=== PATIENT | female | born 1970 | race Caucasian/White ===

== ENCOUNTER 2017-01-13 19:27 | Inpatient (IN) | payer MEDICAID ==
[2017-01-13] MEDS ORDERED: NS 1,000 ML IV ONE ×3 (19:39→21:14)
[2017-01-13] MEDS ORDERED: FAMOTIDINE 20 MG in NS 100 ML IV ONE (19:39)
[2017-01-13] MEDS ORDERED: PROMETHAZINE HCL 25 MG/ML INJ IVP ONE (19:39)
[2017-01-13] MEDS ORDERED: HYDROmorphONE/DILAUDID 1 MG/ML INJ IVP ONE ×2 (19:39→20:24)
--- NOTE | 2017-01-13 19:44 | EDPHY ---
H & P Time Seen by Provider: 01/13/17 19:35 HPI/ROS: HPI Vomiting and diarrhea. 46-year-old female by private vehicle. She reports she developed nausea followed by vomiting and diarrhea yesterday evening. She reports this has been persistent. She reports at least 18-20 episodes of nonbilious, nonbloody vomiting as well as dry heaving with watery diarrhea since that time. No bloody or melenic stool. She describes having crampy abdominal discomfort. She denies any foreign travel. No change in diet. No ill contacts. No new medications. She also noticed some blood in her urine this evening prior to arrival. She is not menstruating currently. She is postmenopausal. ROS: Constitutional: No fever, no chills. No weakness. Eyes: No discharge. No changes in vision. ENT: No sore throat. No nasal congestion or rhinorrhea. Respiratory: No cough. No shortness of breath. Cardiac: No chest pain, no palpitations. Gastrointestinal: As above. Genitourinary: As above. No dysuria or increased frequency with urination. Musculoskeletal: No back pain. No neck pain. No myalgias or arthralgias. Skin: No rashes. Neurological: No headache. No focal weakness or altered sensation. Past medical history: Migraine headaches, chronic pain secondary to lumbar and cervical degeneration, anxiety. She takes Ativan p.r.n.. She takes morphine for her chronic pain. She took morphine earlier today but with no relief in her symptoms. Social history: Nonsmoker. Here by herself. Occasional alcohol use. Physical Exam: General Appearance: Alert, anxious. This patient is responding to questions appropriately and in full sentences. She generally appears well nourished. Eyes: Pupils equal and round no pallor or injection. No lid edema, erythema or injection. ENT, Mouth: Mucous membranes are dry. Respiratory: There are no retractions, lungs are clear to auscultation with good air movement bilaterally. Cardiovascular: Regular rate and rhythm. Tachycardia. No murmur appreciated. Gastrointestinal: Abdomen is soft with mild and vague tenderness throughout, no masses, bowel sounds normal. No focal tenderness at McBurney's point. No Simpson sign. Neurological: Motor sensory function is grossly intact. Cranial nerves are normal. Gait is normal. Skin: Warm and dry, no rashes. Musculoskeletal: Neck is supple and nontender. No CVA tenderness on palpation bilaterally. Extremities are symmetrical. All joints range without pain or impingement. Psychiatric: No agitation. No depression. Database: EKG: Imaging: Procedures: Emergency department course: IV placed. She was placed on a monitor. Vital signs reviewed. She is tachycardic. She is afebrile on triage vitals. She was started on IV normal saline with 2 L to be given over the next 1-2 hours. She was initially given 20 mg of IV Pepcid, 4 mg of IV Zofran, 6.25 mg of IV Phenergan and 0.5 mg of IV hydromorphone. 8:25 p.m., patient re-evaluated. Her nausea is much better. She still complains of some crampy abdominal discomfort and had another episode of diarrhea. She was given 0.5 mg of IV hydromorphone. Heart rate is now 120. Blood work shows acidosis. Likely secondary to loss of bicarbonate from diarrhea. Leukocytosis likely associated with vomiting. 9:20 p.m., patient re-evaluated. Resting comfortably at this time. She states that she feels much better. She has had 2 L of IV normal saline. She has urinated. We are waiting on results of urinalysis. Heart rate has come down to 110. Repeat abdominal exam she is soft, nontender nondistended. She was started on a 3rd L of IV fluids, lactated Ringer's. We will give her some oral fluids as well. Urinalysis reviewed. Are RBCs and a few WBCs with hyaline casts. May represent infectious etiology. Urine sent for culture. She will be started on antibiotics in the emergency department. These will be continued verses discontinued based on culture results. 10:35 p.m., patient re-evaluated. She is failed p.o. challenge. Vomited her juice. She was given another 4 mg of IV Zofran. Sepsis protocol initiated. She was given 1 g of IV ceftriaxone in the emergency department for possible urinary tract infection/pyelonephritis. Plan will be to admit her to the hospitalist service for antiemetics and continued IV fluid hydration. A repeat basic metabolic panel was sent to evaluate her electrolyte status and acidosis. Blood cultures and stool studies have been ordered. She endorses plan for admission. 10:40 p.m., spoke with on-call hospitalist Dr. Urszula Mullen. Case discussed in detail with her. She accepts the patient for admission. 10:45 p.m., patient 2nd metabolic panel shows a bicarb from [address] Mullen is aware of pending lactate and sepsis protocol studies. Urinalysis is not clearly indicative as source of infection. Leukocytosis an acidosis at this time more likely secondary vomiting and bicarbonate loss from diarrhea respectively. Stool cultures and studies have also been ordered. Patient will be continued on aggressive IV fluids. 11:00 p.m., patient comfortable at this time. Repeat abdominal exam is soft, nontender nondistended. She was transferred to [facility] in stable and improved condition. Differential Diagnosis: The differential diagnosis on this patient includes but is not limited to food borne illness, viral gastroenteritis, narcotic withdrawal, benzodiazepine withdrawal. Appendicitis, other surgical etiology unlikely. This represents a partial list of diagnoses considered. These considerations are based on history , physical exam, past history, reassessment and diagnostic testing. Smoking Status: Never smoked Constitutional: Initial Vital Signs Temperature (C) 36.3 C 01/13/17 19:35 Heart Rate 142 H 01/13/17 19:35 Respiratory Rate 20 01/13/17 19:35 Blood Pressure 130/105 H 01/13/17 19:35 O2 Sat (%) 98 01/13/17 19:35 O2 Delivery Mode Room Air Allergies/Adverse Reactions: erythromycin base [From E-Mycin] Allergy (Intermediate, Verified 01/13/17 19:48) Abdominal Pain/ VOMITTING Home Medications: Medication Instructions Recorded Albuterol [Proventil Inhaler HFA 1 - 2 puffs IH Q4H PRN 01/14/17 (*)] Cyclobenzaprine [Flexeril 10 MG 10 mg PO TID PRN 01/14/17 (*)] LORazepam [Ativan (*)] 1 mg PO TID PRN 01/14/17 Naproxen 375 mg PO DAILY 01/14/17 QUEtiapine FUMARATE [Seroquel 100 100 mg PO DAILY 01/14/17 mg (*)] QUEtiapine FUMARATE [Seroquel 100 200 mg PO HS 01/14/17 mg (*)] morphINE SR [Ms Contin/Oramorph 15 15 mg PO Q8H PRN 01/14/17 mg (*)] oxyCODONE/APAP 5/325 [Percocet 1 tab PO TID PRN 01/14/17 5/325 (*)] Medical Decision Making - Data Points Laboratory Results: Laboratory Results 01/13/17 19:45 01/13/17 22:20 Microbiology Results: MICROBIOLOGY 01/13/17 21:10 Unspecified Urine Culture - Preliminary Medications Given: Enoxaparin Sodium (Lovenox) 40 mg SC DAILY AMY Stop: 07/13/17 08:59 Last Admin: 01/14/17 08:18 Dose: 40 mg Hydromorphone HCl (Dilaudid) 0.4 mg IVP Q4HRS PRN PRN Reason: Pain, Severe Unable to Take PO Stop: 01/24/17 01:18 Last Admin: 01/15/17 02:10 Dose: 0.4 mg Ceftriaxone Sodium/Dextrose (Rocephin 1 Gm (Premix)) 50 mls @ 100 mls/hr IV DAILY AMY PRN Reason: Protocol Stop: 02/13/17 08:59 Last Admin: 01/14/17 08:18 Dose: 50 mls Sodium Chloride (Ns) 1,000 mls @ 150 mls/hr IV CONT AMY Stop: 07/13/17 01:29 Last Admin: 01/14/17 15:18 Dose: 1,000 mls Morphine Sulfate (Ms Contin/Oramorph) 15 mg PO Q8H PRN PRN Reason: pain Stop: 01/24/17 10:17 Last Admin: 01/15/17 06:32 Dose: 15 mg Ondansetron HCl (Zofran) 4 mg IVP Q4HRS PRN PRN Reason: Nausea/Vomiting, Can't Take PO Stop: 07/13/17 00:51 Last Admin: 01/14/17 13:05 Dose: 4 mg Ondansetron HCl (Zofran Odt) 4 mg PO Q4HRS PRN PRN Reason: Nausea/Vomiting, Use 1st Stop: 07/13/17 00:51 Last Admin: 01/14/17 15:17 Dose: 4 mg Quetiapine Fumarate (Seroquel) 200 mg PO HS AMY Stop: 07/13/17 20:59 Last Admin: 01/14/17 21:09 Dose: 200 mg Discontinued Medications Acetaminophen (Tylenol) 1,000 mg PO ONCE ONE Stop: 01/13/17 23:09 Last Admin: 01/13/17 23:19 Dose: 1,000 mg Famotidine (Pepcid) 20 mg IVP EDNOW ONE Stop: 01/13/17 19:57 Last Admin: 01/13/17 20:07 Dose: Not Given Hydromorphone HCl (Dilaudid) 0.5 mg IVP EDNOW ONE Stop: 01/13/17 19:40 Last Admin: 01/13/17 19:59 Dose: 0.5 mg Hydromorphone HCl (Dilaudid) 0.5 mg IVP EDNOW ONE Stop: 01/13/17 20:25 Last Admin: 01/13/17 20:31 Dose: 0.5 mg Hydromorphone HCl (Dilaudid) 0.5 mg IVP EDNOW ONE Stop: 01/13/17 23:46 Last Admin: 01/14/17 00:45 Dose: Not Given Sodium Chloride (Ns) 1,000 mls @ 0 mls/hr IV EDNOW ONE; Wide Open PRN Reason: Protocol Stop: 01/13/17 19:40 Last Admin: 01/13/17 20:01 Dose: 1,000 mls Sodium Chloride (Ns) 1,000 mls @ 0 mls/hr IV EDNOW ONE; Wide Open PRN Reason: Protocol Stop: 01/13/17 19:40 Last Admin: 01/13/17 20:29 Dose: 1,000 mls Famotidine 20 mg/ Sodium (Chloride) 102 mls @ 408 mls/hr IV EDNOW ONE Stop: 01/13/17 19:53 Last Admin: 01/13/17 19:58 Dose: Not Given Sodium Chloride (Ns) 1,000 mls @ 0 mls/hr IV EDNOW ONE; Wide Open PRN Reason: Protocol Stop: 01/13/17 21:15 Last Admin: 01/14/17 00:45 Dose: Not Given Lactated Ringer's (Lr) 1,000 mls @ 500 mls/hr IV EDNOW ONE Stop: 01/13/17 23:20 Last Admin: 01/13/17 21:25 Dose: 1,000 mls Ceftriaxone Sodium/Dextrose (Rocephin 1 Gm (Premix)) 50 mls @ 100 mls/hr IV EDNOW ONE PRN Reason: Protocol Stop: 01/13/17 22:03 Last Admin: 01/13/17 21:44 Dose: 50 mls Morphine Sulfate (Ms Contin/Oramorph) 15 mg PO BID AMY Stop: 01/24/17 01:29 Last Admin: 01/14/17 08:18 Dose: 15 mg Ondansetron HCl (Zofran) 4 mg IVP EDNOW ONE Stop: 01/13/17 22:27 Last Admin: 01/13/17 22:36 Dose: 4 mg Pneumococcal Polyvalent Vaccine (Pneumovax 23) 0.5 ml IM .ONCE ONE Stop: 01/14/17 08:14 Last Admin: 01/14/17 08:26 Dose: 0.5 ml Promethazine HCl (Phenergan) 6.25 mg IVP EDNOW ONE Stop: 01/13/17 19:40 Last Admin: 01/13/17 20:00 Dose: 6.25 mg Quetiapine Fumarate (Seroquel) 200 mg PO HS AMY Stop: 07/13/17 01:17 Last Admin: 01/14/17 01:41 Dose: 200 mg Departure - Departure Disposition: [facility] Acute Clinical Impression: Vomiting and diarrhea, Dehydration, Tachycardia, Acidosis, Sepsis, Leukocytosis
[2017-01-13 19:49] LABS: % IMMATURE GRANULYOCYTES 0.5 % (0.0-1.1); ABSOLUTE IMMATURE GRANULOCYTES 0.14 10^3/uL (0.00-0.10); ADD DIFF? NO; ADD MORPH? NO; ADD SCAN? NO; ATYPICAL LYMPHOCYTE FLAG 0 (0-99); FRAGMENT RBC FLAG 20 (0-99); HEMATOCRIT 43.6 % (38.0-47.0); HEMOGLOBIN 14.8 g/dL (12.6-16.3); LEFT SHIFT FLG 0 (0-99); LIPEMIA HEMOLYSIS FLAG 90 (0-99); MEAN CELL HEMOGLOBIN 26.2 pg (27.9-34.1); MEAN CELL HEMOGLOBIN CONCENTR. 33.9 g/dL (32.4-36.7); MEAN CELL VOLUME 77.3 fL (81.5-99.8); MEAN PLATELET VOLUME 10.4 fL (8.7-11.7); PLATELET CLUMPS FLAG 0 (0-99); PLATELET COUNT 495 10^3/uL (150-400); RED BLOOD CELL COUNT 5.64 10^6/uL (4.18-5.33); RED CELL DISTRIBUTION WIDTH 15.4 % (11.5-15.2)
[2017-01-13] MEDS ORDERED: FAMOTIDINE 20 MG/2 ML SDV IVP ONE (19:56)
[2017-01-13 20:06] LABS: ALANINE AMINOTRANSFERASE 25 IU/L (9-52); ALBUMIN 4.4 g/dL (3.5-5.0); ALKALINE PHOSPHATASE 104 IU/L (38-126); ANION GAP 19 mEq/L (8-16); ASPARTATE AMINOTRANSFERASE 18 IU/L (14-46); BILIRUBIN-CONJUGATED 0.6 mg/dL (0.0-0.5); BILIRUBIN-UNCONJUGATED 0.4 mg/dL (0.0-1.1); CALCIUM 9.6 mg/dL (8.5-10.4); CARBON DIOXIDE 14 mEq/l (22-31); CHLORIDE 103 mEq/L (97-110); CREATININE 0.8 mg/dL (0.6-1.0); GLOMERULAR FILTRATION RATE > 60; GLUCOSE 140 mg/dL (70-100); POTASSIUM 4.2 mEq/L (3.5-5.2); SODIUM 136 mEq/L (134-144); TOTAL PROTEIN 7.8 g/dL (6.3-8.2)
[2017-01-13 21:14] LABS: COLOR YELLOW; LEUKOCYTE ESTERASE,URINE NEGATIVE (NEGATIVE); NITRITE,URINE NEGATIVE (NEGATIVE)
[2017-01-13] MEDS ORDERED: LR 1,000 ML IV ONE (21:21)
[2017-01-13 21:22] LABS: WBC,URINE OCCASIONAL /hpf (0-3)
[2017-01-13 21:23] LABS: BACTERIA 2+ /hpf (NONE SEEN); MUCUS 2+ /lpf (NONE-1+)
[2017-01-13] MEDS ORDERED: ONDANSETRON 4 MG/2 ML VIAL IVP ONE (22:26)
[2017-01-13 22:38] LABS: ANION GAP 14 mEq/L (8-16); CALCIUM 8.3 mg/dL (8.5-10.4); CARBON DIOXIDE 19 mEq/l (22-31); CHLORIDE 104 mEq/L (97-110); CREATININE 0.7 mg/dL (0.6-1.0); GLOMERULAR FILTRATION RATE > 60; GLUCOSE 112 mg/dL (70-100); POTASSIUM 4.5 mEq/L (3.5-5.2); SODIUM 137 mEq/L (134-144)
[2017-01-13] MEDS ORDERED: ACETAMINOPHEN 500 MG TAB PO ONE (23:08)
[2017-01-13] MEDS ORDERED: ACETAMINOPHEN 500 MG TAB ONE (23:17)
[2017-01-13] MEDS: HYDROmorphONE/DILAUDID 1 MG/ML INJ IVP ONE (23:58)
[2017-01-14] MEDS: HYDROmorphONE/DILAUDID 1 MG/ML INJ IVP ONE (00:45)
[2017-01-14] MEDS ORDERED: ONDANSETRON 4 MG/2 ML VIAL IVP PRN (00:52)
[2017-01-14] MEDS ORDERED: QUEtiapine FUMARATE 200 MG TAB PO SCH (01:18)
[2017-01-14] MEDS: morphINE SR 15 MG TAB PO SCH ×2 (01:40→08:18)
[2017-01-14] MEDS: NS 1,000 ML IV SCH ×2 (01:41→15:18)
--- NOTE | 2017-01-14 02:17 | GHP ---
[f rep st] HISTORY AND PHYSICAL DATE OF ADMISSION: 01/13/2017 CHIEF COMPLAINT: Vomiting, diarrhea. HISTORY OF PRESENT ILLNESS: A 46-year-old female with history of asthma, chronic lumbar back pain, presenting with sudden onset nausea and vomiting beginning yesterday. She said she had up to 16 episodes of diarrhea with no blood. She felt very malaise. Yesterday, she ate a cheese sandwich and some ice cream with her daughter, thought that might be the reason for symptoms given her lactose intolerance. Today, she has only urinated twice and complained of burning and hematuria. Denies ill contacts. No recent travel. No headache. No cough. Complains of bilateral flank pain. She wonders if she got sick because her home was exposed to fecal matter when her toilet backed up 2 months ago. This has been an ongoing cleanup issue for the past 2 months. No recent antibiotics. REVIEW OF SYSTEMS: I completed a 10-point review of systems, negative except as noted in HPI. PAST MEDICAL HISTORY: Asthma, lumbar back pain, lactose intolerance, mood disorder. PAST SURGICAL HISTORY: [place] teeth. FAMILY HISTORY: Father with alcoholism. Maternal grandfather with an [place] and diabetes. SOCIAL HISTORY: Lives in [place] with her and 3 kids. No illicits. ALLERGIES: Lactose and erythromycin. HOME MEDICATIONS: Seroquel 200 mg daily, morphine sulfate Contin 50 mg twice daily, albuterol, naproxen 375 mg daily, and Ativan, unclear dose. ALLERGIES: Erythromycin, rash. PHYSICAL EXAMINATION: VITAL SIGNS: Afebrile, 37.5. Blood pressure 157/101, now 126/81. Heart rate is in the 120s. Respirations 20, 94% on room air. GENERAL: Ill appearing, but lying in bed, smiling. HEENT: Very dry mucous membranes. Oropharynx clear. No exudate or erythema. CV: Tachycardic, but regular. No murmurs, gallops, rubs. LUNGS: Clear. No crackles or wheezing. ABDOMEN: Soft, nontender, nondistended. Positive bowel sounds. : Bilateral suprapubic pain and CVA tenderness. MUSCULOSKELETAL: Five out of 5 upper and lower extremity strength. NEURO: Two through 12 intact. PSYCH: Alert and oriented x3. SKIN: Warm, dry. No rash or ulceration. LABS: WBC 27, hemoglobin 14, hematocrit 43, MCV 77, platelets 495. Lactate 5.5. Sodium 137, potassium 4.5, chloride 104, carbon dioxide 14 and now 19, creatinine 0.7, glucose 112. Calcium 8.3. Total bilirubin 1. Lipase 18. Occasional WBC, +2 bacteria, +1 blood. ASSESSMENT AND PLAN: 1. Severe sepsis, likely secondary to pyelonephritis given elevated white count , dysuria, and exam findings. Aggressively hydrate with IV fluids. Was dosed with ceftriaxone. Will continue this. Blood and urine cultures are pending. Lactate was elevated at 5.5. Will repeat this after aggressive hydration. 2. Leukocytosis: Differential includes pyelonephritis versus a gastrointestinal source. Blood and urine cultures pending. Gastrointestinal panel pending. 3. Diarrhea: Likely secondary to pyelonephritis. PCR pending. No Imodium until Clostridium difficile is ruled out. 4. Lactic acidosis secondary to severe dehydration and diarrhea. Aggressively hydrate repeat. Blood pressure is stable. 5. Thrombocytosis secondary to acute illness. Repeat in the morning. 6. Chronic lumbar back pain. Continue morphine sulfate Contin. 7. Mood disorder. Seroquel. 8. Deep venous thrombosis prophylaxis, Lovenox. 9. Diet: Clears, advance as tolerated. DISPOSITION: Patient warrants inpatient admission given acute severe sepsis warranting aggressive IV fluids and antibiotics. /[id number]/MODL MTDD
[2017-01-14 05:35] LABS: HEMATOCRIT 37.1 % (38.0-47.0); HEMOGLOBIN 12.1 g/dL (12.6-16.3); MEAN CELL HEMOGLOBIN 26.5 pg (27.9-34.1); MEAN CELL HEMOGLOBIN CONCENTR. 32.6 g/dL (32.4-36.7); MEAN CELL VOLUME 81.4 fL (81.5-99.8); RED BLOOD CELL COUNT 4.56 10^6/uL (4.18-5.33); RED CELL DISTRIBUTION WIDTH 15.7 % (11.5-15.2)
[2017-01-14 05:36] LABS: ANION GAP 10 mEq/L (8-16); CALCIUM 8.1 mg/dL (8.5-10.4); CARBON DIOXIDE 21 mEq/l (22-31); CHLORIDE 108 mEq/L (97-110); CREATININE 0.9 mg/dL (0.6-1.0); GLOMERULAR FILTRATION RATE > 60; GLUCOSE 99 mg/dL (70-100); POTASSIUM 4.2 mEq/L (3.5-5.2); SODIUM 139 mEq/L (134-144)
[2017-01-14] MEDS: HYDROmorphONE/DILAUDID 1 MG/ML INJ IVP PRN ×4 (07:01→21:09)
[2017-01-14] MEDS ORDERED: PNEUMOCOCCAL 0.5ML VACCINE VIAL IM ONE (08:13)
[2017-01-14] MEDS: ENOXAPARIN 40 MG/0.4 ML SYR SC SCH (08:18)
[2017-01-14] MEDS ORDERED: ALBUTEROL 60 PUFFS/8 GM MDI IH PRN (10:18)
[2017-01-14] MEDS ORDERED: CYCLOBENZAPRINE 10 MG TAB PO PRN (10:18)
[2017-01-14] MEDS ORDERED: LORazepam 1 MG TAB PO PRN (10:18)
[2017-01-14] MEDS: ONDANSETRON DISINTEGRATING 4 MG TAB PO PRN (15:17)
--- NOTE | 2017-01-14 15:25 | HOSPPROG ---
Hospitalist Progress Note Assessment/Plan: 46 yo F [facility] PMH of chronic back pain and RAD presenting with severe sepsis along with n/v/diarrhea # severe sepsis: presented with lactate of 5.5 that has improved now to 1.0, presumed to be urinary source though given diarrhea GI source also possible. Treating for presumed pyelo with CTX for now although UA relatively bland and given 2+ epithelial cells was also a dirty catch. Urine and blood cultures pending, adb/pelvic US negative, GI pathogen panel including c diff pending. LFT /lipase have been wnl. # ? pyelonephritis: as above, UA only minimally abnormal, cutlures pending, US not showing any perinephric stranding or other signs of pyelo # diarrhea: continues to have watery diarrhea, GI pathogen panel pending, no real RF for c diff # leukocytosis: in the setting of sepsis but fairly significantly elevated, coming down already overnight # lactic acidosis: related to sepsis and resolved # chronic pain with continuous narcotic use and dependency: continue usual medications including MS contin and percocet # dispo: IP status, high risk presenting with severe sepsis patient new to my care. Old records reviewed and summarized as above. Care plan reviewed with Dr. Hylton and multidisciplinary care team. Subjective: no significant overnight events, patient feeling better but still very somnolent Objective: Vital Signs Temp Pulse Resp BP Pulse Ox 36.2 C 107 H 17 137/92 H 94 01/14/17 12:00 01/14/17 12:00 01/14/17 12:00 01/14/17 12:00 01/14/17 12:00 Laboratory Results 01/14/17 04:41 01/14/17 04:41 01/13/17 01/14/17 01/15/17 05:59 05:59 05:59 Intake Total 3980 Output Total 1000 1000 Balance 2980 -1000 somnolent, arousable anicteric op clear tachy regular cta b soft nt nd no cce warm dry well perfused oriented appropriate ICD10 Worksheet Patient Problems: Problems Problem Status Onset Vomiting and diarrhea Acute Dehydration Acute Tachycardia Acute Acidosis Acute
[2017-01-14] MEDS: morphINE SR 15 MG TAB PO PRN (16:09)
[2017-01-14] MEDS: QUEtiapine FUMARATE 100 MG TAB PO SCH (21:09)
[2017-01-15] MEDS: HYDROmorphONE/DILAUDID 1 MG/ML INJ IVP PRN ×4 (02:10→19:16)
[2017-01-15 05:14] LABS: HEMATOCRIT 32.6 % (38.0-47.0); HEMOGLOBIN 10.4 g/dL (12.6-16.3); MEAN CELL HEMOGLOBIN 26.5 pg (27.9-34.1); MEAN CELL HEMOGLOBIN CONCENTR. 31.9 g/dL (32.4-36.7); RED BLOOD CELL COUNT 3.93 10^6/uL (4.18-5.33); RED CELL DISTRIBUTION WIDTH 15.8 % (11.5-15.2)
[2017-01-15] MEDS: morphINE SR 15 MG TAB PO PRN ×3 (06:32→22:49)
[2017-01-15] MEDS: ACETAMINOPHEN 325 MG TAB PO PRN (07:31)
[2017-01-15] MEDS: QUEtiapine FUMARATE 100 MG TAB PO SCH ×2 (07:32→20:29)
[2017-01-15] MEDS: ENOXAPARIN 40 MG/0.4 ML SYR SC SCH (07:33)
--- NOTE | 2017-01-15 11:58 | HOSPPROG ---
Hospitalist Progress Note Assessment/Plan: 46 yo F [facility] PMH of chronic back pain and RAD presenting with severe sepsis along with n/v/diarrhea # severe sepsis: presented with lactate of 5.5 that has improved now to 1.0. Started on tx for UTI/pyelo as next though urine culture and UA not truly c/w pyelo. LFTs/lipase wnl, abd exam benign, no respiratory sxs, GI pathogen panel negative, blood cultures with ngtd. All improving on ctx/IVF. ? viral gastroenteritis. Will also check influenza. Will continue abx for now but dc in am if no other culture data to guide therapy. # ? pyelonephritis/uti: as above, UA only minimally abnormal, cultures with very low colony count GNR and otherwise normal urogenital zachary. US not c/w pyelo. Suspect this was not actually present. # diarrhea/nausea/vomiting: improving, GI pathogen panel negative, again suspect viral gastroenteritis # leukocytosis: in the setting of sepsis but fairly significantly elevated on arrival at 25k, continues to improve # lactic acidosis: related to sepsis and resolved # chronic pain with continuous narcotic use and dependency: continue usual medications including MS contin and percocet # dispo: IP status, high risk presenting with severe sepsis, although patient clinically improved still tachy and given unclear etiology for her presentation will keep in house and on IV abx for at least one more day Subjective: awake alert nad, feeling better, ate some food without vomiting, diarrhea has improved some Objective: Vital Signs Temp Pulse Resp BP Pulse Ox 36.9 C 100 18 110/80 94 01/15/17 08:00 01/15/17 08:00 01/15/17 08:00 01/15/17 08:00 01/15/17 08:00 Microbiology 01/14/17 12:30 Gastrointestinal Tract Panel (PCR) - Final Stool No Organism Detected Laboratory Results 01/15/17 04:57 01/14/17 04:41 01/14/17 01/15/17 01/16/17 05:59 05:59 05:59 Intake Total 3980 1450 2050 Output Total 1000 1700 Balance 2980 -250 2050 awake alert nad anicteric op clear rrr no mrg cta b soft nt +bs no cce warm dry well perfused oriented appropriate ICD10 Worksheet Patient Problems: Problems Problem Status Onset Acidosis Acute Dehydration Acute Leukocytosis Acute Sepsis Acute Tachycardia Acute Vomiting and diarrhea Acute
[2017-01-15] MEDS: ONDANSETRON DISINTEGRATING 4 MG TAB PO PRN ×2 (14:08→19:16)
--- NOTE | 2017-01-15 14:23 | ASMTCMCOM ---
CM Note CM Note Notes: Pt is a 46 y/o female admitted w/ vomiing and diarrhea. CM met w/ pt for dispo planning. Pt reports that she will most likely not have any needs and can d/c independent. Pt reports that she does need help arranging a ride back home. CM available for changes. Date Signed: 01/15/2017 02:22 PM Electronically Signed By:EVELYNE Gray
[2017-01-16] MEDS: HYDROmorphONE/DILAUDID 1 MG/ML INJ IVP PRN ×5 (00:39→23:40)
[2017-01-16 05:38] LABS: HEMATOCRIT 35.5 % (38.0-47.0); HEMOGLOBIN 11.3 g/dL (12.6-16.3); MEAN CELL HEMOGLOBIN 26.3 pg (27.9-34.1); MEAN CELL HEMOGLOBIN CONCENTR. 31.8 g/dL (32.4-36.7); MEAN CELL VOLUME 82.8 fL (81.5-99.8); RED BLOOD CELL COUNT 4.29 10^6/uL (4.18-5.33); RED CELL DISTRIBUTION WIDTH 15.7 % (11.5-15.2)
[2017-01-16] MEDS: morphINE SR 15 MG TAB PO PRN ×2 (08:40→17:38)
[2017-01-16] MEDS: ONDANSETRON DISINTEGRATING 4 MG TAB PO PRN (08:40)
[2017-01-16] MEDS: QUEtiapine FUMARATE 100 MG TAB PO SCH ×2 (08:40→20:22)
[2017-01-16] MEDS: ENOXAPARIN 40 MG/0.4 ML SYR SC SCH (08:41)
[2017-01-16] MEDS ORDERED: MAGNESIUM HYDROXIDE 30 ML UDCUP PO PRN (09:29)
[2017-01-16] MEDS ORDERED: BISACODYL 10 MG SUPP PR PRN (09:29)
[2017-01-16] MEDS ORDERED: LACTULOSE 20 GM/30 ML UDCUP PO PRN (09:29)
[2017-01-16] MEDS ORDERED: IOPAMIDOL (ISOVUE-300) 100 ML BTL ONE (10:13)
--- NOTE | 2017-01-16 14:10 | HOSPPROG ---
Hospitalist Progress Note Assessment/Plan: 46 yo F [facility] PMH of chronic back pain and RAD presenting with severe sepsis along with n/v/diarrhea # severe sepsis: presented with lactate of 5.5 that has improved now to 1.0. Started on tx for UTI/pyelo as next though urine culture and UA not truly c/w pyelo. LFTs/lipase wnl on arrival--today with increased abdominal pain and distension as next. # colitis: infectious versus ischemic. Reviewed with GI who feel this is more likely ischemic and recommend that patient undergo scope however would likely defer that for now as could have higher risk with ischemia present. Personally reviewed abd ct showing e/o colitis. # abnormal UA: appears dirty rather than true infection, urine culture with very low colony count gnr and otherwise multiple organisms # diarrhea/nausea/vomiting: diarrhea has resolved and GI pathogen panel negative , will repeat if has recurrent diarrhea, n/v resolved but abdominal pain worse again today # leukocytosis: in the setting of sepsis but fairly significantly elevated on arrival at 25k, continues to improve # lactic acidosis: related to sepsis and resolved # chronic pain with continuous narcotic use and dependency: continue usual medications including MS contin and percocet # dispo: IP status, high risk presenting with severe sepsis,reviewed care plan with GI Subjective: no significant overnight events, patient this am having increased abdominal pain and abdominal distension, no bm since saturday Objective: Vital Signs Temp Pulse Resp BP Pulse Ox 37.1 C 90 12 121/77 H 90 L 01/16/17 12:00 01/16/17 12:00 01/16/17 12:00 01/16/17 12:00 01/16/17 12:00 Laboratory Results 01/16/17 04:56 01/14/17 04:41 01/15/17 01/16/17 01/17/17 05:59 05:59 05:59 Intake Total 1450 2630 Output Total 1700 1000 Balance -250 1630 awake alert nad anicteric op clear rrr no mrg cta b ant exam soft dec bs ttp diffusely no cce warm dry well perfused oriented appropriate ICD10 Worksheet Patient Problems: Problems Problem Status Onset Vomiting and diarrhea Acute Dehydration Acute Tachycardia Acute Acidosis Acute Sepsis Acute Leukocytosis Acute
--- NOTE | 2017-01-16 16:14 | GCON ---
[f rep st] CONSULTATION DATE OF CONSULTATION: 01/16/2017 REQUESTING PHYSICIAN: Efrem Bradley MD INDICATION FOR CONSULTATION: Abnormal CAT scan. HISTORY OF PRESENT ILLNESS: The patient is a pleasant 46-year-old female with past medical history significant for back pain, asthma, mood disorder, and lactose intolerance. She was in her usual state of health until Saturday evening when she started to develop nausea, vomiting, abdominal pain, and diarrhea. She called her family practitioner nurse practitioner, and they asked her to hydrate with Gatorade. She continued that throughout the evening but had worsening of symptoms, and presented to the emergency room for evaluation. She stated she had up to 16 episodes of diarrhea during that day. She did have both a cheese sandwich and ice cream earlier in the day and thought that her lactose intolerance might have caused the diarrhea. She did have some dysuria and some subjective fevers. I believe her temperature when she was evaluated was only 99.3. She also tells me that she did have chills during the day on Saturday as well as on Saturday night. She thought that she saw a little bit of blood in the urine and blood on the toilet paper, as well. She was admitted with likely severe sepsis and treated. She was doing well, in fact significantly improved yesterday, but had worsening symptoms today including some abdominal pain. A CT scan was performed, which did show some inflammation in the distal colon. She has not had any recurrent diarrhea, however. I am now here to help and evaluate her abnormal CT scan. PAST MEDICAL HISTORY: Asthma, back pain, lactose intolerance, and mood disorder. PAST SURGICAL HISTORY: [place] teeth. HOME MEDICATIONS: Included Seroquel 200 mg daily, MS Contin 50 mg twice a day, albuterol inhaler, Aleve 375 mg daily, and Ativan p.r.n. HOSPITAL MEDICATIONS: P.r.n. Tylenol, albuterol 1 to 2 puffs p.r.n. q.4, Dulcolax p.r.n., Ceftriaxone 1 g IV daily, Flexeril 10 mg t.i.d. p.r.n., Lovenox 40 mg subcu daily, Dilaudid p.r.n., lactulose p.r.n., Ativan 1 mg p.o. three times daily p.r.n., milk of magnesia p.r.n., MS Contin 50 mg p.o. q.h.s. p.r.n., Zofran p.r.n., Percocet 1 tab p.o. t.i.d. p.r.n., MiraLAX p.r.n., Seroquel mg p.o. daily and 200 mg p.o. q.h.s., Senokot 1-2 tabs p.o. b.i.d. ALLERGIES: Erythromycin, she thinks caused stomach upset. SOCIAL HISTORY: She does not smoke. She drank alcohol when she was age [age] and has not had a drink since age 20. FAMILY HISTORY: Father with melanoma and non-Hodgkin lymphoma. Paternal grandmother with lung cancer. Paternal grandfather with CVA. Maternal grandfather with type 2 diabetes, obesity, and heart disease. REVIEW OF SYSTEMS: A complete review of systems was performed and is negative other than noted in the HPI. PHYSICAL EXAMINATION: GENERAL: Well developed, well nourished. No acute distress. Lying comfortably in bed. VITAL SIGNS: Blood pressure 121/77, pulse 90 respirations 12, 90% in room air; earlier today she is 96% on room air. Temperature is 37.1. EYES: Anicteric. PERRL. EOMI. MOUTH: No lesions. Moist mucous membranes. NECK: Supple. Full range of motion. No JVD. BACK: No spine tenderness. No CVA tenderness. LUNGS: Clear. CARDIAC: S1, S2. Regular rate and rhythm. No murmurs, rubs, or gallops appreciated. ABDOMEN: Bowel sounds are normal pitch and frequency. Abdomen is soft with mild left-sided tenderness. No rebound. No guarding. No hepatosplenomegaly. EXTREMITIES: No cyanosis, clubbing, or edema. NEUROLOGIC: Cranial nerves intact. Nonfocal. Alert and oriented x3. SKIN: No stigmata of advanced liver disease. LABORATORY DATA: From today, WBC 15.2, hemoglobin 11.3, hematocrit 35.5, platelet count 333. From the 18th, sodium 139, potassium 4.2, chloride 108, bicarb 21, BUN 11, creatinine 0.9, calcium 8.1. From the 17th (on admission) AST 18, ALT 25, alk phos 104. Lipase was 818. Beta hCG was negative. Influenza A and B PCR was negative. Blood cultures to date are no growth. Urine culture gram-negative breonna lactose fermenters, but 4 colony types, with only 3000 colony-forming units per mL of organism 1. Organism 2 has 4 colony types, greater than 100,000 CFU per mL. The first organisms gram-negative breonna lactose fermenters of 3000 units/mL. A GI tract PCR panel was performed on January 14 and was negative. An abdominal/pelvis ultrasound performed on January 14 showed normal renal sonogram. An abdominal CT scan performed January 16, 2017, with no oral or rectal contrast, just IV contrast: Findings of downstream half of the transverse colon and descending colon have mild circumferential wall thickening and mild stranding in the pericolonic fat. A few scattered diverticula are present throughout the descending and sigmoid colon. No evidence of mechanical obstruction or bowel distortion. Trace free fluid in the pelvis. Normal appendix. Normal liver, spleen, pancreas, and gallbladder. Their impression is mild colitis involving the downstream half of the transverse colon and descending colon. Query infectious or inflammatory etiologies. The long segment of involvement is atypical for diverticulitis and doubtful for ischemic colitis. I did review the CT scan with a radiologist, although not the one who did read it initially. We did try to follow the artery system out, and she did think that this was also less likely to be ischemic from its location. ASSESSMENT: 1. Abnormal CT scan with inflammation of the gastrointestinal tract. 2. Mild abdominal pain related to above. 3. Admission for what seems to be sepsis, significantly improved. 4. Asthma. 5. Depression. 6. Musculoskeletal back pain. RECOMMENDATIONS: 1. Follow clinically. 2. Continue regular diet. 3. If she is improving, would recommend colonoscopy as an outpatient not sooner than 6 weeks after discharge. 4. If she is not improving, would recommend flexible sigmoidoscopy for evaluation of inflammation in the descending colon. Even though the radiologist feels this is less likely to be ischemia, that certainly is the most likely etiology given her hypotension when she presented. It is possible that she had an infectious colitis that caused translocation of bacteria and a sepsis syndrome from that. Her urine culture does have 4 colonies at greater than 100,000 colony-forming units. She certainly is much improved with her antibiotic therapy. 5. Further management to follow results of above and clinical course. Thank you for allowing me to participate in the care of this patient. Do not hesitate to call me with any questions. Sincerely, /[id number]/MODL MTDD
[2017-01-16] MEDS: SENNOSIDES/DOCUSATE SODIUM TAB PO SCH ×2 (17:36→20:22)
[2017-01-16] MEDS: POLYETHYLENE GLYCOL 3350 17 GM PKT PO PRN (20:27)
[2017-01-16] MEDS ORDERED: SENNOSIDES/DOCUSATE SODIUM TAB PO SCH (21:00)
[2017-01-17] MEDS: HYDROmorphONE/DILAUDID 1 MG/ML INJ IVP PRN ×2 (06:31→11:50)
[2017-01-17] MEDS: ENOXAPARIN 40 MG/0.4 ML SYR SC SCH (08:53)
[2017-01-17] MEDS: QUEtiapine FUMARATE 100 MG TAB PO SCH ×2 (08:54→20:08)
[2017-01-17] MEDS: SENNOSIDES/DOCUSATE SODIUM TAB PO SCH ×2 (08:54→20:09)
[2017-01-17] MEDS: ONDANSETRON DISINTEGRATING 4 MG TAB PO PRN ×3 (08:57→21:28)
[2017-01-17] MEDS: POLYETHYLENE GLYCOL 3350 17 GM PKT PO PRN (08:59)
--- NOTE | 2017-01-17 09:31 | SOAPPROG ---
SOAP Progress Note Assessment/Plan: Assessment:Plan: 1) Colitis - I think tis is ischemia given her clinical presentation. It is possible that this colitis was the source of bacterial translocation to cause her sepsis picture. her BCx and negative to date, but her clinical course is most c/w infection causing hypotension causing colonic ischemia. She will need a colonoscopy - 8 weeks out if she continues to do well. IF she ahs increase in GI sx's as outpt she can contact us and we will schedule scope sooner. Possible d/c home today 2) abdo pain - less, improving c/w resolving ischemic colitis 01/17/17 09:28 Subjective: cc- abnml CT scan with colitis, abdo pain, prob sepsis pt feeling better less pain, passing flatus no BM's over last 1-2 days wants to go home if able Objective: Vital Signs Temp Pulse Resp BP Pulse Ox 36.8 C 72 18 123/80 H 94 01/17/17 08:00 01/17/17 08:00 01/17/17 08:00 01/17/17 08:00 01/17/17 08:00 Laboratory Results 01/16/17 04:56 01/14/17 04:41 01/16/17 01/17/17 01/18/17 05:59 05:59 05:59 Intake Total 2630 Output Total 1000 900 Balance 1630 -900 A+Ox3 CTA S1S2 +BS, soft minimal left sided discomfort with deep palpation, no r/g. ICD10 Worksheet Patient Problems: Problems Problem Status Onset Acidosis Acute Dehydration Acute Leukocytosis Acute Sepsis Acute Tachycardia Acute Vomiting and diarrhea Acute
[2017-01-17] MEDS ORDERED: CIPROFLOXACIN 500 MG TAB PO SCH (10:00)
[2017-01-17] MEDS ORDERED: MAGNESIUM CITRATE 300 ML BOTTLE PO ONE (11:15)
[2017-01-17] MEDS ORDERED: PROMETHAZINE HCL 25 MG/ML INJ IVP ONE (11:15)
[2017-01-17] MEDS: metroNIDAZOLE 500 MG TAB PO SCH ×3 (12:18→20:10)
[2017-01-17] MEDS ORDERED: PROMETHAZINE HCL 25 MG/ML INJ IVP PRN (14:04)
--- NOTE | 2017-01-17 14:04 | HOSPPROG ---
Hospitalist Progress Note Assessment/Plan: 46 yo F [facility] PMH of chronic back pain and RAD presenting with severe sepsis along with n/v/diarrhea # severe sepsis: presented with lactate of 5.5 that has improved now to 1.0. Started on tx for UTI/pyelo as next though urine culture and UA not c/w pyelo. Suspect 2/2 colitis as next. Now HD stable # colitis: infectious versus ischemic. Will plan to continue to treat as infectious for now given unclear etiology. Reviewed with GI, plan will be for OP colonoscopy so long as patient continues to clinically improve. Has been on ceftriaxone and will transition to cipro/flagyl. # n/v: began again today after resolving completely, will continue prn anti emetics and continue to monitor in house. # abnormal UA: appears dirty rather than true infection, urine culture with very low colony count gnr and otherwise multiple organisms # diarrhea: diarrhea has resolved and GI pathogen panel negative, will repeat if has recurrent diarrhea, now constipated # leukocytosis: in the setting of sepsis but fairly significantly elevated on arrival at 25k, continues to improve # lactic acidosis: related to sepsis and resolved # chronic pain with continuous narcotic use and dependency: continue usual medications including MS contin and percocet # dispo: IP status, given recurrent n/v will hold off on dc home Subjective: no significant overnight events, she had been feeling well until late this morning when she began to have recurrent severe n/v Objective: Vital Signs Temp Pulse Resp BP Pulse Ox 36.8 C 72 18 123/80 H 94 01/17/17 08:00 01/17/17 08:00 01/17/17 08:00 01/17/17 08:00 01/17/17 08:00 Laboratory Results 01/16/17 04:56 01/14/17 04:41 01/16/17 01/17/17 01/18/17 05:59 05:59 05:59 Intake Total 2630 Output Total 1000 900 Balance 1630 -900 awake alert nad anicteric op clear rrr no mrg cta b ant exam soft dec bs ttp diffusely no cce warm dry well perfused oriented appropriate ICD10 Worksheet Patient Problems: Problems Problem Status Onset Acidosis Acute Dehydration Acute Leukocytosis Acute Sepsis Acute Tachycardia Acute Vomiting and diarrhea Acute
[2017-01-17] MEDS ORDERED: metroNIDAZOLE 500 MG TAB PO SCH (14:15)
[2017-01-17] MEDS: CIPROFLOXACIN 500 MG TAB PO SCH ×2 (14:32→20:08)
[2017-01-17] MEDS: OXYCODONE/APAP 5/325 TAB PO PRN ×2 (16:53→23:33)
--- NOTE | 2017-01-17 17:31 | ASMTCMCOM ---
CM Note CM Note Notes: Pt relapsing w/nausea and vomiting, no dc today. Plan remains the same pt will dc home independent when medically stable, CM available for any changes. Date Signed: 01/17/2017 05:31 PM Electronically Signed By:Misty Meyer RN
[2017-01-17] MEDS: morphINE SR 15 MG TAB PO PRN (20:09)
[2017-01-17] MEDS: ACETAMINOPHEN 325 MG TAB PO PRN (21:27)
[2017-01-18] MEDS: ONDANSETRON DISINTEGRATING 4 MG TAB PO PRN (04:00)
[2017-01-18] MEDS: metroNIDAZOLE 500 MG TAB PO SCH (04:01)
[2017-01-18] MEDS: morphINE SR 15 MG TAB PO PRN (05:40)
[2017-01-18 05:48] LABS: % IMMATURE GRANULYOCYTES 0.5 % (0.0-1.1); ABSOLUTE IMMATURE GRANULOCYTES 0.05 10^3/uL (0.00-0.10); ADD DIFF? NO; ADD MORPH? NO; ADD SCAN? NO; ATYPICAL LYMPHOCYTE FLAG 30 (0-99); FRAGMENT RBC FLAG 0 (0-99); HEMATOCRIT 35.2 % (38.0-47.0); HEMOGLOBIN 11.4 g/dL (12.6-16.3); LEFT SHIFT FLG 0 (0-99); LIPEMIA HEMOLYSIS FLAG 80 (0-99); MEAN CELL HEMOGLOBIN 26.4 pg (27.9-34.1); MEAN CELL HEMOGLOBIN CONCENTR. 32.4 g/dL (32.4-36.7); MEAN CELL VOLUME 81.5 fL (81.5-99.8); MEAN PLATELET VOLUME 10.5 fL (8.7-11.7); PLATELET CLUMPS FLAG 0 (0-99); PLATELET COUNT 337 10^3/uL (150-400); RED BLOOD CELL COUNT 4.32 10^6/uL (4.18-5.33); RED CELL DISTRIBUTION WIDTH 15.2 % (11.5-15.2)
--- NOTE | 2017-01-18 08:35 | HOSPPROG ---
Hospitalist Progress Note Assessment/Plan: #Severe sepsis: resolved #Colitis: cont Cipro/flagyl. FU Dr. Covarrubias for scope #Lactic acidosis: resolved #Leukocytosis: resolved #N/V: resolved #Chronic pain: MS contin #Disp: DC today Subjective: ate breakfast. Less abd pain Objective: Vital Signs Temp Pulse Resp BP Pulse Ox 36.7 C 77 16 97/72 L 95 01/18/17 03:57 01/18/17 03:57 01/18/17 03:57 01/18/17 03:57 01/18/17 03:57 Laboratory Results 01/18/17 05:24 01/14/17 04:41 01/17/17 01/18/17 01/19/17 05:59 05:59 05:59 Intake Total 250 Output Total 900 Balance -900 250 - Physical Exam Constitutional: no apparent distress, other (smiling) Eyes: PERRL Ears, Nose, Mouth, Throat: moist mucous membranes Cardiovascular: regular rate and rhythym Respiratory: no respiratory distress Gastrointestinal: normoactive bowel sounds, soft, non-tender abdomen, other ( min epigastric TTP) Genitourinary: no bladder fullness Skin: warm Musculoskeletal: full muscle strength Neurologic: AAOx3, CN II-XII Intact Psychiatric: interacting appropriately ICD10 Worksheet Patient Problems: Problems Problem Status Onset Acidosis Acute Dehydration Acute Leukocytosis Acute Sepsis Acute Tachycardia Acute Vomiting and diarrhea Acute
[2017-01-18] MEDS: OXYCODONE/APAP 5/325 TAB PO PRN (08:45)
[2017-01-18] MEDS: CIPROFLOXACIN 500 MG TAB PO SCH (08:46)
[2017-01-18] MEDS: QUEtiapine FUMARATE 100 MG TAB PO SCH (08:46)
[2017-01-18] MEDS: SENNOSIDES/DOCUSATE SODIUM TAB PO SCH (08:47)
[2017-01-18] MEDS: ENOXAPARIN 40 MG/0.4 ML SYR SC SCH (08:47)
--- NOTE | 2017-01-18 09:10 | GDS ---
[f rep st] DISCHARGE SUMMARY DISCHARGE DIAGNOSES: 1. Severe sepsis. 2. Colitis. 3. Lactic acidosis. 4. Metabolic anion gap acidosis, nausea/vomiting. 5. Pyuria. 6. Diarrhea. 7. Leukocytosis. 8. Chronic pain. HISTORY OF PRESENT ILLNESS: A 46-year-old female with history of chronic back pain and reactive airw ay disease. Presented with nausea, vomiting, diarrhea for several days. She was having up to 16 epi sodes of nonbloody diarrhea and felt very tired. Complained of burning and hematuria with urination. No recent travel or ill contacts. HOSPITAL COURSE BY PROBLEM: 1. Severe sepsis: Initially suspected pyelonephritis with dysuria, and mildly positive UA, however, culture was negative. More likely source was colitis. Patient was transitioned to Cipro and Flagyl and will continue this. She will follow up with Dr. Martinez for outpatient colonoscopy. 2. Leukocytosis: Again, secondary to colitis. Plan as above. 3. Diarrhea. PCR was negative. Treating empirically with Cipro, Flagyl. 4. Lactic acidosis: Secondary to severe dehydration and diarrhea. This resolved quickly with aggre ssive hydration. 5. Thrombocytosis secondary to acute illness. 6. Chronic lumbar back pain. Continue MS Contin. 7. Mood disorder, Seroquel. DISPOSITION: The patient is safe for discharge. NEW MEDICATIONS: Zofran, Cipro, Flagyl. FOLLOWUP: Dr. Martinez for endoscopy in 8 weeks. /[id number]/MODL
[2017-01-18 09:18] VITALS: BP 111/71; PULSE 91; RESP 18; TEMP 98.4; O2SAT 94
--- NOTE | 2017-01-18 11:15 | ASMTCMCOM ---
CM Note CM Note Notes: Spoke w/pt re; dc home. Will dc home independent, CM called [facility] to take pt home. CM available for any changes. Date Signed: 01/18/2017 11:14 AM Electronically Signed By:Misty Meyer RN
--- NOTE | 2017-01-18 18:08 | ASDISCHSUM ---
Discharge Information Plan Status:Home with No Needs Medically Cleared to Leave: Discharge Date:01/18/2017 11:15 AM CM D/C Disposition:Home, Routine, Self-Care ADT D/C Disposition:Home, Routine, Self-Care Projected Discharge Date:01/17/2017 12:00 AM Transportation at D/C:Taxicab Discharge Delay Reason: Follow-Up Date:01/17/2017 12:00 AM Discharge Slot: Final Diagnosis: Placement Information Patient Contact Information Contact Name:QUANG Relationship:Sister Address: Work Phone: City: [facility] Phone: State/[place] Code: Email: Financial Information Financial Class: Primary Plan Desc:[employer] Primary Plan Number:[id number] Secondary Plan Desc: Secondary Plan Number: Assessment Information [facility] CM Progress Note CM Note CM Note Notes: Pt is a 46 y/o female admitted w/ vomiing and diarrhea. CM met w/ pt for dispo planning. Pt reports that she will most likely not have any needs and can d/c independent. Pt reports that she does need help arranging a ride back home. CM available for changes. Date Signed: 01/15/2017 02:22 PM Electronically Signed By:EVELYNE Gray [facility] CM Progress Note CM Note CM Note Notes: Pt relapsing w/nausea and vomiting, no dc today. Plan remains the same pt will dc home independent when medically stable, CM available for any changes. Date Signed: 01/17/2017 05:31 PM Electronically Signed By:Misty Meyer RN [facility] CM Progress Note CM Note CM Note Notes: Spoke w/pt re; dc home. Will dc home independent, CM [facility] to take pt home. CM available for any changes. Date Signed: 01/18/2017 11:14 AM Electronically Signed By:Misty Meyer RN Intervention Information
== END 2017-01-18 11:15 | disposition home or self-care (01) | DRG 872 ==
LOC: CED 19:27 → CEDHOLD 22:33 → F2N 01-14 00:35 → F3E 01-14 15:07
PROVIDERS: ADMIT Internal Medicine; ATTEND Internal Medicine
DX: A41.9 Sepsis, unspecified organism (principal); R65.20 Severe sepsis without septic shock; K55.9 Vascular disorder of intestine, unspecified; F11.20 Opioid dependence, uncomplicated; E87.2 Acidosis; R30.0 Dysuria; D72.829 Elevated white blood cell count, unspecified; R11.2 Nausea with vomiting, unspecified; R19.7 Diarrhea, unspecified; R10.9 Unspecified abdominal pain; E86.0 Dehydration; J45.909 Unspecified asthma, uncomplicated; M54.5 Low back pain; D47.3 Essential (hemorrhagic) thrombocythemia; F39 Unspecified mood [affective] disorder; E73.9 Lactose intolerance, unspecified; Z23 Encounter for immunization; I95.9 Hypotension, unspecified
CPT/HCPCS: 80048-PO; 80076-PO; 81003-PO; 81015-PO; 83605-PO; 83690-PO; 84703-PO; 85025-PO; 96365; G0009; J0696; J1170; J1650; J2405; J2550; Q9967

== ENCOUNTER → 2017-10-04 | Outpatient (CLI) | payer MEDICAID | LOC: CIMAGING 15:21 | PROVIDERS: ATTEND Family Medicine | DX: J98.4 Other disorders of lung (principal); Z87.898 Personal history of other specified conditions | CPT/HCPCS: 71046-PO ==

== ENCOUNTER → 2018-05-09 | Outpatient (CLI) | payer MEDICAID | LOC: CIMAGING 11:29 | PROVIDERS: ATTEND Family Medicine | DX: M79.672 Pain in left foot (principal); M79.662 Pain in left lower leg | CPT/HCPCS: 73590-PO; 73630-PO ==